=== PATIENT | female | born 1970 | race Caucasian/White ===

== ENCOUNTER 2017-02-15 13:18 | Emergency (ER) | payer BC ==
[2017-02-15] MEDS ORDERED: Sodium Chloride 0.9% 1000 ML 1,000 ML IV STA (13:54)
[2017-02-15] MEDS ORDERED: MORPHINE SULFATE 4 MG INJ IV ONE ×2 (13:54→15:24)
[2017-02-15 14:03] LABS: BASOPHIL % 0.3 % (0.0-0.4); Eosinophil % 2.1 % (0.00-5.0); Granulocytes % 67.7 % (36.0-66.0); Lymphocytes % 22.5 % (24.0-44.0); Mean Cell Volume 87.1 fl (78-100); Mean Corpuscular Hemoglobin 28.9 pg (26-32); Mean Platelet Volume 10.3 fl (6-9.5); Monocytes % 7.4 % (0.0-12.0); Platelet Count 274 K/mm3 (150-450); Red Blood Count 4.88 M/mm3 (4.1-5.4); Red Cell Distribution Width 13.2 % (11.5-14.0); White Blood Count 9.4 K/mm3 (4.0-10.5)
[2017-02-15 14:04] LABS: Collection Type CLEAN CATCH
[2017-02-15 14:05] LABS: Bilirubin NEGATIVE (NEGATIVE); Blood 50 Ery/ul (0-5); COMPLETE URINE MICROSCOPIC? YES; Glucose 250 mg/dL (NEGATIVE); Leukocyte Esterase 2+ (NEGATIVE)
[2017-02-15] MEDS ORDERED: Sodium Chloride 0.9% 1000 ML 1,000 ML ONE (14:05)
[2017-02-15] MEDS ORDERED: MORPHINE SULFATE 4 MG INJ ONE ×2 (14:05→15:29)
[2017-02-15 14:18] LABS: ADD URINE CULTURE? YES (NO); Bacteria MODERATE /HPF (NEGATIVE); Epithelial Cells MODERATE /HPF (FEW); Mucus SLIGHT /HPF (NEGATIVE); WBC 15-25 /HPF (0-5)
[2017-02-15 14:19] LABS: ALBUMIN 3.7 g/dL (3.4-5.0); ALKALINE PHOSPHATASE 101 U/L (46-116); ANION GAP 16.4 MEQ/L (5-15); BLOOD UREA NITROGEN 13 mg/dL (9-20); CHLORIDE 104 mEq/L (98-107); Carbon Dioxide 21.9 mEq/L (21-32); Glucose 230 MG/DL (70-110); LIPASE 71 U/L (73-393); Potassium 4.3 mEq/L (3.5-5.1); SGOT/AST 31 U/L (15-37); SGPT/ALT 32 U/L (12-78); SODIUM 138 mEq/L (136-145); Total Protein 7.2 gm/dL (6.4-8.2)
[2017-02-15] MEDS ORDERED: Zofran 4 MG/2 ML VIAL ONE (14:31)
[2017-02-15] MEDS ORDERED: Zofran 4 MG/2 ML VIAL IV ONE (14:32)
--- NOTE | 2017-02-15 14:51 | ERPHSYRPT ---
- History of Present Illness Time Seen by Provider: 02/15/17 14:51 Historian: patient, family Exam Limitations: no limitations Patient Subjective Stated Complaint: abdominhal pain for week and a half, getting worse and then 2 or 3 days ago noticed a knot on the side Triage Nursing Assessment: pt alert and oriented x3, abdominal pain and tenderness radiating to back and around rib cage, small knot under skin surface on palpation, bowel sounds x4, skin warm dry and intact, balance intact gait is steady and patient can ambualte by self. Physician History: abdominal pain for week and a half, getting worse and then 2 or 3 days ago noticed a knot on the side Timing/Duration: day(s) (2-3 days) Allergies/Adverse Reactions: metoclopramide HCl [From Reglan] Allergy (Mild, Verified 05/26/15 18:50) "CREEPY CRAWLYS" erythromycin base [Erythromycin Base] Adverse Reaction (Mild, Verified 05/26/15 18:50) Vomiting hydromorphone HCl [From Dilaudid] Adverse Reaction (Mild, Verified 05/26/15 18: 50) Vomiting Home Medications: Buspirone HCl [Buspar] 10 mg PO HS 01/25/14 [History] Duloxetine HCl [Cymbalta] 60 mg PO DAILY 01/25/14 [History] Insulin Glargine [Lantus Insulin] 48 unit SQ HS 01/25/14 [History] Insulin Lispro [Humalog] 10 unit SQ AC 01/25/14 [History] Lovastatin 40 mg PO HS 01/25/14 [History] Omeprazole Magnesium [Prilosec Otc] 20 mg PO BID 01/25/14 [History] Promethazine HCl 25 mg [Phenergan 25 mg] 25 mg PO Q12H PRN 01/25/14 [ History] Tizanidine HCl 4 mg [Zanaflex 4 MG] 6 mg PO HS 01/25/14 [History] Baclofen 10 mg [Lioresal 10 mg] 10 mg PO TID 01/02/15 [History] Fenofibrate 54 mg PO DAILY 01/02/15 [History] Fluticasone/Salmeterol [Advair 100-50 Diskus] 1 puff IH BID 05/26/15 [History] Hydrocodone Bit/Acetaminophen [Hydrocodon-Acetaminoph 7.5-325] 1 tab PO BID [History] Hx Tetanus, Diphtheria Vaccination/Date Given: Yes Hx Influenza Vaccination/Date Given: No Hx Pneumococcal Vaccination/Date Given: No Immunizations Up to Date: Yes - Past Medical History Pertinent Past Medical History: Yes Neurological History: No Pertinent History ENT History: No Pertinent History Cardiac History: High Cholesterol Respiratory History: Asthma Endocrine Medical History: Diabetes Type I Musculoskeletal History: Arthritis, Fibromyalgia GI Medical History: Colitis, GERD, Gallbladder Disease History: No Pertinent History Psycho-Social History: Anxiety, Depression Female Reproductive Disorders: Abnormal Uterine Bleeding, Menstrual Problems Other Medical History: Celiac disease and unknown connective tissue disease. - Past Surgical History Past Surgical History: Yes Neuro Surgical History: No Pertinent History Cardiac: No Pertinent History Respiratory: No Pertinent History Gastrointestinal: Appendectomy, Cholecystectomy, Hernia Repair Musculoskeletal: No Pertinent History Female Surgical History: Section, Hysterectomy Other Surgical History: Cholecystectomy, appendectomy - Social History Smoking Status: Never smoker Exposure to second hand smoke: No Drug Use: none Patient Lives Alone: No - Nursing Vital Signs Nursing Vital Signs: Initial Vital Signs Temperature 98.1 F 02/15/17 13:19 Pulse Rate 98 H 02/15/17 13:19 Respiratory Rate 20 02/15/17 13:19 Blood Pressure 131/82 02/15/17 13:19 O2 Sat by Pulse Oximetry 98 02/15/17 13:19 Pain Scale Pain Intensity 8 - Physical Exam SpO2: 97 Oxygen Delivery: Room Air - CT Exams Abdomen/Pelvis CT Interpretation: Tele-radiologist Report (no acute obstructive changes, ) Ordered Tests: Active Orders 24 hr Category Date Time Status Clean Catch Urine Specimen STAT Care 02/15/17 13:50 Active IV Insertion STAT Care 02/15/17 13:50 Active ABDOMEN AND PELVIS W/0 CONTRAS [CT] Stat Exams 02/15/17 13:55 Taken AMYLASE Stat Lab 02/15/17 14:06 Completed CBC W DIFF Stat Lab 02/15/17 14:06 Completed CMP Stat Lab 02/15/17 14:06 Completed CULTURE,URINE Stat Lab 02/15/17 13:54 Received LIPASE Stat Lab 02/15/17 14:06 Completed Lactic Acid Stat Lab 02/15/17 13:54 Completed UA W/ MICROSCOPIC Stat Lab 02/15/17 13:54 Completed Urine Triage Profile Stat Lab 02/15/17 14:06 Completed Medication Summary Generic Name Dose Route Start Last Admin Trade Name Joselito PRN Reason Stop Dose Admin Ceftriaxone Sodium/Dextrose 1 g in 50 mls @ 100 mls/hr 02/15/17 15:09 15:19 Rocephin 1 Gm-D5w 50 Ml Bag IV 02/15/17 15:38 100 mls/hr STAT STA Administration Discontinued Medications Generic Name Dose Route Start Last Admin Trade Name Freq PRN Reason Stop Dose Admin Sodium Chloride 1,000 mls @ 999 mls/hr 02/15/17 13:54 02/15/17 14:25 Sodium Chloride 0.9% 1000 Ml IV 02/15/17 14:54 999 mls/hr .Q1H1M STA Administration Sodium Chloride Confirm 02/15/17 14:05 Sodium Chloride 0.9% 1000 Ml Administered 02/15/17 14:06 Dose 1,000 mls @ ud .ROUTE .STK-MED ONE Ceftriaxone Sodium/Dextrose Confirm 02/15/17 15:16 Rocephin 1 Gm-D5w 50 Ml Bag Administered 02/15/17 15:17 Dose 1 g in 50 mls @ ud IV .STK-MED ONE Morphine Sulfate 4 mg 02/15/17 13:54 02/15/17 14:24 Morphine Sulfate 4 Mg Inj IV 02/15/17 13:55 4 mg STAT ONE Administration Morphine Sulfate Confirm 02/15/17 14:05 Morphine Sulfate 4 Mg Inj Administered 02/15/17 14:06 Dose 4 mg .ROUTE .STK-MED ONE Ondansetron HCl 4 mg 02/15/17 14:32 02/15/17 14:33 Zofran 4 Mg/2 Ml Vial IV 02/15/17 14:33 4 mg STAT ONE Administration Ondansetron HCl Confirm 02/15/17 14:31 Zofran 4 Mg/2 Ml Vial Administered 02/15/17 14:32 Dose 4 mg .ROUTE .STK-MED ONE Lab/Rad Data: Laboratory Result Diagrams 02/15/17 14:06 02/15/17 14:06 Laboratory Results 02/15/17 02/15/17 02/15/17 Range/Units 14:06 14:06 14:06 WBC 9.4 (4.0-10.5) K/mm3 RBC 4.88 (4.1-5.4) M/mm3 Hgb 14.1 (12.0-16.0) gm/dl Hct 42.5 (35-47) % MCV 87.1 (78-100) fl MCH 28.9 (26-32) pg MCHC 33.2 (32-36) g/dl RDW 13.2 (11.5-14.0) % Plt Count 274 (150-450) K/mm3 MPV 10.3 H (6-9.5) fl Gran % 67.7 H (36.0-66.0) % Lymphocytes % 22.5 L (24.0-44.0) % Monocytes % 7.4 (0.0-12.0) % Eosinophils % 2.1 (0.00-5.0) % Basophils % 0.3 (0.0-0.4) % Basophils # 0.03 (0-0.4) Sodium 138 (136-145) mEq/L Potassium 4.3 (3.5-5.1) mEq/L Chloride 104 (98-107) mEq/L Carbon Dioxide 21.9 (21-32) mEq/L Anion Gap 16.4 H (5-15) MEQ/L BUN 13 (9-20) mg/dL Creatinine 0.78 (0.55-1.30) mg/dl Estimated GFR > 60 ML/MIN Glucose 230 H (70-110) MG/DL Lactic Acid (0.4-2.0) Calcium 8.8 (8.5-10.1) mg/dL Total Bilirubin 0.30 (0.2-1.0) mg/dL AST 31 (15-37) U/L ALT 32 (12-78) U/L Alkaline Phosphatase 101 (46-116) U/L Serum Total Protein 7.2 (6.4-8.2) gm/dL Albumin 3.7 (3.4-5.0) g/dL Amylase 37 (25-115) U/L Lipase 71 L (73-393) U/L Ur Collection Type Urine Color (YELLOW) Urine Appearance (CLEAR) Urine pH (5-6) Ur Specific [place] (1.005-1.025) Urine Protein (Negative) Urine Ketones (NEGATIVE) Urine Blood (0-5) Nura/ul Urine Nitrite (NEGATIVE) Urine Bilirubin (NEGATIVE) Urine Urobilinogen (0-1) mg/dL Ur Leukocyte Esterase (NEGATIVE) Urine Microscopic RBC (0-2) /HPF Urine Microscopic WBC (0-5) /HPF Ur Epithelial Cells (FEW) /HPF Urine Bacteria (NEGATIVE) /HPF Urine Mucus (NEGATIVE) /HPF Urine Culture Reflexed (NO) Urine Glucose (NEGATIVE) mg/dL Urine Opiates Level POS. (NEGATIVE) Ur Methadone NEG. (NEGATIVE) Urine Barbiturates NEG. (NEGATIVE) Ur Phencyclidine (PCP) NEG. (NEGATIVE) Urine Amphetamine NEG. (NEGATIVE) U Benzodiazepine Level NEG. (NEGATIVE) Urine Cocaine NEG. (NEGATIVE) Urine Marijuana (THC) NEG. (NEGATIVE) Specimen Received 02/15/17 02/15/17 Range/Units 13:54 13:54 WBC (4.0-10.5) K/mm3 RBC (4.1-5.4) M/mm3 Hgb (12.0-16.0) gm/dl Hct (35-47) % MCV (78-100) fl MCH (26-32) pg MCHC (32-36) g/dl RDW (11.5-14.0) % Plt Count (150-450) K/mm3 MPV (6-9.5) fl Gran % (36.0-66.0) % Lymphocytes % (24.0-44.0) % Monocytes % (0.0-12.0) % Eosinophils % (0.00-5.0) % Basophils % (0.0-0.4) % Basophils # (0-0.4) Sodium (136-145) mEq/L Potassium (3.5-5.1) mEq/L Chloride (98-107) mEq/L Carbon Dioxide (21-32) mEq/L Anion Gap (5-15) MEQ/L BUN (9-20) mg/dL Creatinine (0.55-1.30) mg/dl Estimated GFR ML/MIN Glucose (70-110) MG/DL Lactic Acid 0.7 (0.4-2.0) Calcium (8.5-10.1) mg/dL Total Bilirubin (0.2-1.0) mg/dL AST (15-37) U/L ALT (12-78) U/L Alkaline Phosphatase (46-116) U/L Serum Total Protein (6.4-8.2) gm/dL Albumin (3.4-5.0) g/dL Amylase (25-115) U/L Lipase (73-393) U/L Ur Collection Type CLEAN CATCH Urine Color YELLOW (YELLOW) Urine Appearance CLOUDY (CLEAR) Urine pH 5.0 (5-6) Ur Specific [place] 1.010 (1.005-1.025) Urine Protein TRACE (Negative) Urine Ketones NEGATIVE (NEGATIVE) Urine Blood 50 (0-5) Nura/ul Urine Nitrite NEGATIVE (NEGATIVE) Urine Bilirubin NEGATIVE (NEGATIVE) Urine Urobilinogen NORMAL (0-1) mg/dL Ur Leukocyte Esterase 2+ (NEGATIVE) Urine Microscopic RBC 5-10 (0-2) /HPF Urine Microscopic WBC 15-25 (0-5) /HPF Ur Epithelial Cells MODERATE (FEW) /HPF Urine Bacteria MODERATE (NEGATIVE) /HPF Urine Mucus SLIGHT (NEGATIVE) /HPF Urine Culture Reflexed YES (NO) Urine Glucose 250 (NEGATIVE) mg/dL Urine Opiates Level (NEGATIVE) Ur Methadone (NEGATIVE) Urine Barbiturates (NEGATIVE) Ur Phencyclidine (PCP) (NEGATIVE) Urine Amphetamine (NEGATIVE) U Benzodiazepine Level (NEGATIVE) Urine Cocaine (NEGATIVE) Urine Marijuana (THC) (NEGATIVE) Specimen Received 02-15 - Progress Progress: improved, pain not gone completely Counseled pt/family regarding: lab results, diagnosis, need for follow-up, rad results - Departure Time of Disposition: 15:24 Departure Disposition: Home Clinical Impression: IDDM (insulin dependent diabetes mellitus) Abdominal pain Qualifiers: Abdominal location: left upper quadrant Qualified Code(s): R10.12 - Left upper quadrant pain UTI (urinary tract infection) Qualifiers: Urinary tract infection type: acute pyelonephritis Qualified Code(s): N10 - Acute pyelonephritis Condition: Stable Critical Care Time: Yes Critical Care Time(excluding separately billable procedures): 30-74 minutes Referrals: MARTA CHUN NP [Primary Care Provider] - Instructions: Abdominal Pain-Adult, Urinary Tract Infection (UTI) Additional Instructions: ABDOMINAL PAIN 1. There are several different causes for abdominal pain, some of which may not be able to be identified on initial examination. 2. The important thing to remember is that bodily functions can change in a short period of time. If you notice any of the following symptoms, return to the emergency department or consult your doctor immediately: A. Worsening pain or no improvement in the next 12 hours. B. Increasing, severe abdominal pain C. Blood in stool D. Black stools E. Persistent vomiting F. Fever or chills or other symptoms URINARY TRACT INFECTION 1. You will need to drink plenty of fluids in order to keep your urinary system flushed. These fluids should mainly consist of water and juices. 2. Take medications as directed. You need to completely finish any antiobiotic prescription given. 3. Try to avoid coffee, tea, alcohol, and seasoned foods as they may cause bladder irritation. 4. If signs and symptoms persist after 3-4 days, you will need to follow up with your family physician. 5. Female Patients: A. Avoid intercourse for 3-4 days. B. Empty bladder before and after intercourse to reduce risk of re- infection. C. After emptying bladder, wipe from front to back to reduce the risk of re- infection. Please follow the instructions given to you. Please take your medication as prescribed if given. If symptoms recur or get worse, come back to the emergency room if you cannot reach your primary care physician, or call your primary care physician for an appointment. Again if your symptoms get worse, come back to the emergency room. Thanks for visiting emergency room, and let us take care of you. Prescriptions: Smz/Tmp Ds Tablet [Bactrim Ds Tablet] 1 udtab PO BID #20 tablet Dicyclomine HCl 20 mg [Bentyl 20 mg] 20 mg PO TID #15 tablet
[2017-02-15] MEDS ORDERED: ROCEPHIN 1 Gm-D5w 50 ml Bag** 1 G/50 ML IVPB IV STA (15:09)
[2017-02-15] MEDS ORDERED: ROCEPHIN 1 Gm-D5w 50 ml Bag** 1 G/50 ML IVPB IV ONE (15:16)
[2017-02-15 15:24] VITALS: BP 120/81; PULSE 84
[2017-02-15 15:25] VITALS: O2SAT 97
--- NOTE | 2017-02-15 21:50 | XRAY ---
Indication: Left flank and epigastric pain. Multiple contiguous axial images obtained through the abdomen and pelvis without contrast as ordered. Comparison: May 26, 2015. Lung bases clear. Heart is not enlarged. Noncontrasted stomach and bowel loops appear nonobstructed. There remains diffuse scattered colonic fecal debris with now undigested pills. Again previous reported hysterectomy, cholecystectomy, and appendectomy. No free fluid/air. Stable small fatty supraumbilical ventral hernia. Remaining liver, pancreas, spleen, adrenal glands, kidneys, ureters, bladder, and aorta appear unremarkable for noncontrast exam. Osseous structures intact. Impression: 1. Stable fatty ventral hernia and fecal stasis without obstruction. 2. No new/acute intra-abdominal/pelvic abnormalities on this noncontrast exam. Comment: Preliminary interpretation was made by [facility]. No discrepancy. CTDI 22.87
== END 2017-02-15 15:53 | disposition home or self-care (01) ==
LOC: ED 13:18
DX: N10 Acute pyelonephritis (principal); R10.12 Left upper quadrant pain; E11.9 Type 2 diabetes mellitus without complications; Z79.4 Long term (current) use of insulin; Z79.899 Other long term (current) drug therapy
CPT/HCPCS: 36000; 36415; 74176; 80053; 80307; 81000; 82150; 83605; 83690; 85025; 87086; 96360; 96365; 96374; 96375; 99285; J0696; J2270; J2405

== ENCOUNTER 2017-12-29 08:13 | Emergency (ER) | payer BC ==
[2017-12-29] MEDS ORDERED: Zofran 4 MG/2 ML VIAL IV ONE (09:20)
[2017-12-29] MEDS ORDERED: Sodium Chloride 0.9% 1000 ML 1,000 ML IV STA (09:20)
[2017-12-29] MEDS ORDERED: PROTONIX 40 MG IV IV ONE ×2 (09:23→09:32)
[2017-12-29] MEDS ORDERED: Zofran 4 MG/2 ML VIAL ONE (09:31)
--- NOTE | 2017-12-29 09:31 | ERPHSYRPT ---
- History of Present Illness Time Seen by Provider: 12/29/17 08:30 Historian: patient Exam Limitations: clinical condition Patient Subjective Stated Complaint: abd pain started last night, last BM yesterday- normal. states pain is sharp and constant with nausea. Triage Nursing Assessment: pt holding abd, skin pale, warm and dry. Physician History: PATIENT WITH HISTORY OF TYPE 2 DIABETES, ASTHMA, OSTEOARTHRITIS, COMPLAINS OF EPIGASTRIC AND UPPER LEFT ABDOMINAL PAIN, SHARP IN CHARACTER. PATIENT COMPLAINS OF PERSISTENT NAUSEA, DENIES EMESIS, FEVER, URINARY SYMPTOMS, FREQUENCY, URGENCY, DYSURIA, HEMATURIA. Timing/Duration: yesterday Activities at Onset: none Quality: sharpness Abdominal Pain Onset Location: LUQ, epigastric Pain Radiation: no radiation Severity of Pain-Max: moderate Severity of Pain-Current: moderate Associated Symptoms: nausea Previous symptoms: no prior history Allergies/Adverse Reactions: metoclopramide HCl [From Reglan] Allergy (Mild, Verified 05/26/15 18:50) "CREEPY CRAWLYS" erythromycin base [Erythromycin Base] Adverse Reaction (Mild, Verified 05/26/15 18:50) Vomiting hydromorphone HCl [From Dilaudid] Adverse Reaction (Mild, Verified 05/26/15 18: 50) Vomiting Home Medications: Buspirone HCl [Buspar] 10 mg PO HS 01/25/14 [History] Duloxetine HCl [Cymbalta] 120 mg PO HS 01/25/14 [History] Insulin Glargine [Lantus Insulin] 48 unit SQ HS 01/25/14 [History] Insulin Lispro [Humalog] 12 unit SQ AC 01/25/14 [History] Lovastatin 40 mg PO HS 01/25/14 [History] Tizanidine HCl 4 mg [Zanaflex 4 MG] 6 mg PO HS 01/25/14 [History] Baclofen 10 mg [Lioresal 10 mg] 10 mg PO TID 01/02/15 [History] Fenofibrate 145 mg PO DAILY 01/02/15 [History] Fluticasone/Salmeterol [Advair 100-50 Diskus] 1 puff IH BID 05/26/15 [History] Hydrocodone Bit/Acetaminophen [Hydrocodon-Acetaminoph 7.5-325] 1 tab PO BID [History] Carbidopa/Levodopa [Sinemet 25-100 mg Tablet] 1 each PO DAILY 12/29/17 [History] Topiramate 25 mg [Topamax 25 MG] 50 mg PO HS 12/29/17 [History] Hx Tetanus, Diphtheria Vaccination/Date Given: Yes Hx Influenza Vaccination/Date Given: Yes Hx Pneumococcal Vaccination/Date Given: No Immunizations Up to Date: Yes - Review of Systems Constitutional: No Symptoms Eyes: No Symptoms Ears, Nose, & Throat: No Symptoms Respiratory: No Cough, No Dyspnea Cardiac: No Chest Pain, No Edema, No Syncope Abdominal/Gastrointestinal: Abdominal Pain, Nausea Genitourinary Symptoms: No Dysuria Musculoskeletal: No Back Pain, No Neck Pain - Past Medical History Pertinent Past Medical History: Yes Neurological History: No Pertinent History ENT History: No Pertinent History Cardiac History: High Cholesterol Respiratory History: Asthma Endocrine Medical History: Diabetes Type I Musculoskeletal History: Arthritis, Fibromyalgia GI Medical History: Colitis, GERD, Gallbladder Disease History: No Pertinent History Psycho-Social History: Anxiety, Depression Female Reproductive Disorders: Abnormal Uterine Bleeding, Menstrual Problems Other Medical History: Celiac disease and unknown connective tissue disease. - Past Surgical History Past Surgical History: Yes Neuro Surgical History: No Pertinent History Cardiac: No Pertinent History Respiratory: No Pertinent History Gastrointestinal: Appendectomy, Cholecystectomy, Hernia Repair Musculoskeletal: No Pertinent History Female Surgical History: Section, Hysterectomy Other Surgical History: Cholecystectomy, appendectomy - Social History Smoking Status: Never smoker Exposure to second hand smoke: No Drug Use: none Patient Lives Alone: No - Female History Hx Last Menstrual Period: 2012 Hx Now: No - Nursing Vital Signs Nursing Vital Signs: Initial Vital Signs Temperature 98.3 F 12/29/17 08:13 Pulse Rate 93 H 12/29/17 08:13 Respiratory Rate 16 12/29/17 08:13 Blood Pressure 102/72 12/29/17 08:13 O2 Sat by Pulse Oximetry 99 12/29/17 08:13 Pain Scale Pain Intensity 4 - Physical Exam General Appearance: no apparent distress, alert Eye Exam: PERRL/EOMI, eyes nml inspection Ears, Nose, Throat Exam: normal ENT inspection, pharynx normal, moist mucous membranes Neck Exam: normal inspection, non-tender, supple, full range of motion Respiratory Exam: normal breath sounds, lungs clear, No respiratory distress Cardiovascular Exam: regular rate/rhythm, normal heart sounds Gastrointestinal/Abdomen Exam: soft, normal bowel sounds, No tenderness (THERE IS EPIGASTRIC AND LEFT LATERAL TENDERNESS, NO GUARDING OR REBOUND TENDERNESS), No mass Back Exam: normal inspection, normal range of motion, CVA tenderness (THERE IS MODERATE LEFT CVA TENDERNESS), No vertebral tenderness Extremity Exam: normal inspection, normal range of motion, pelvis stable Neurologic Exam: alert, oriented x 3, cooperative, normal mood/affect, nml cerebellar function, sensation nml, No motor deficits Skin Exam: normal color, warm, dry SpO2 Interpretation: normal SpO2: 99 Oxygen Delivery: Room Air - CT Exams Abdomen/Pelvis CT Interpretation: Discussed w/radiologist (NO NEW /ACUTE INTRA-ABDOMINAL / PELVIC ANORMALITIES) Ordered Tests: Active Orders 24 hr Category Date Time Status Clean Catch Urine Specimen STAT Care 12/29/17 09:20 Active IV Insertion STAT Care 12/29/17 09:20 Active ABDOMEN AND PELVIS W/0 CONTRAS [CT] Stat Exams 12/29/17 09:21 Completed AMYLASE Stat Lab 12/29/17 10:02 Completed BMP Stat Lab 12/29/17 10:02 Completed CBC W DIFF Stat Lab 12/29/17 10:02 Completed LIPASE Stat Lab 12/29/17 10:02 Completed UA W/RFX UR CULTURE Stat Lab 12/29/17 11:45 Completed Medication Summary Discontinued Medications Generic Name Dose Route Start Last Admin Trade Name Freq PRN Reason Stop Dose Admin Sodium Chloride 1,000 mls @ 500 mls/hr 12/29/17 09:20 12/29/17 10:06 Sodium Chloride 0.9% 1000 Ml IV 12/29/17 11:19 500 mls/hr .Q2H STA Administration Sodium Chloride Confirm 12/29/17 09:32 Sodium Chloride 0.9% 1000 Ml Administered 12/29/17 09:33 Dose 1,000 mls @ ud .ROUTE .STK-MED ONE Morphine Sulfate 8 mg 12/29/17 09:35 12/29/17 10:19 Morphine Sulfate 10 Mg/Ml IV 12/29/17 09:36 8 mg STAT ONE Administration Morphine Sulfate Confirm 12/29/17 10:16 Morphine Sulfate 10 Mg/Ml Administered 12/29/17 10:17 Dose 10 mg .ROUTE .STK-MED ONE Ondansetron HCl 4 mg 12/29/17 09:20 12/29/17 10:06 Zofran 4 Mg/2 Ml Vial IV 12/29/17 09:21 4 mg STAT ONE Administration Ondansetron HCl Confirm 12/29/17 09:31 Zofran 4 Mg/2 Ml Vial Administered 12/29/17 09:32 Dose 4 mg .ROUTE .STK-MED ONE Pantoprazole Sodium 40 mg 12/29/17 09:23 12/29/17 10:06 Protonix 40 Mg Iv IV 12/29/17 09:24 40 mg STAT ONE Administration Pantoprazole Sodium Confirm 12/29/17 09:32 Protonix 40 Mg Iv Administered 12/29/17 09:33 Dose 40 mg IV .STK-MED ONE Lab/Rad Data: Laboratory Result Diagrams 12/29/17 10:02 12/29/17 10:02 Laboratory Results 12/29/17 12/29/17 12/29/17 Range/Units 11:45 10:02 10:02 WBC 10.1 (4.0-10.5) K/mm3 RBC 4.57 (4.1-5.4) M/mm3 Hgb 13.7 (12.0-16.0) gm/dl Hct 40.9 (35-47) % MCV 89.5 (78-100) fl MCH 30.0 (26-32) pg MCHC 33.5 (32-36) g/dl RDW 13.1 (11.5-14.0) % Plt Count 306 (150-450) K/mm3 MPV 10.4 H (6-9.5) fl Gran % 74.8 H (36.0-66.0) % Eos # (Auto) 0.11 (0-0.5) Absolute Lymphs (auto) 1.72 (1.0-4.6) Absolute Monos (auto) 0.71 (0.0-1.3) Lymphocytes % 17.0 L (24.0-44.0) % Monocytes % 7.0 (0.0-12.0) % Eosinophils % 1.1 (0.00-5.0) % Basophils % 0.1 (0.0-0.4) % Absolute Granulocytes 7.56 H (1.4-6.9) Basophils # 0.01 (0-0.4) Sodium 138 (137-145) mmol/L Potassium 4.0 (3.5-5.1) mmol/L Chloride 104 (98-107) mmol/L Carbon Dioxide 23 (22-30) mmol/L Anion Gap 15.9 H (5-15) MEQ/L BUN 19 H (7-17) mg/dL Creatinine 0.89 (0.52-1.04) mg/dL Estimated GFR > 60.0 ML/MIN Glucose 260 H (74-106) mg/dL Calcium 9.1 (8.4-10.2) mg/dL Amylase 51 (30-110) U/L Lipase 30 (23-300) U/L Ur Collection Type CLEAN CATCH Urine Color YELLOW (YELLOW) Urine Appearance CLEAR (CLEAR) Urine pH 5.0 (5-6) Ur Specific [place] 1.020 (1.005-1.025) Urine Protein NEGATIVE (Negative) Urine Ketones NEGATIVE (NEGATIVE) Urine Blood NEGATIVE (0-5) Nura/ul Urine Nitrite NEGATIVE (NEGATIVE) Urine Bilirubin NEGATIVE (NEGATIVE) Urine Urobilinogen NORMAL (0-1) mg/dL Ur Leukocyte Esterase NEGATIVE (NEGATIVE) Urine Culture Reflexed NO (NO) Urine Glucose 1000 (NEGATIVE) mg/dL - Progress Progress: improved Progress Note: 12/29/17 09:32 ADMINISTERED IV NORMAL SALINE 500ML/HR X 2, ZOFRAN 4MG, PROTONIX 40MG, MORPHINE SULFATE 8MG IV 12/29/17 10:26 Counseled pt/family regarding: lab results, diagnosis, need for follow-up, rad results - Departure Time of Disposition: 12:35 Departure Disposition: Home Clinical Impression: ACUTE ABDOMINAL PAIN Condition: Stable Critical Care Time: No Referrals: MARTA CHUN NP [Primary Care Provider] - Additional Instructions: BEGIN PROTONIX 40MG DAILY FOR 4 WEEKS AND DISCONTINUE PRILOSEC. MAY TAKE EITHER 2 TABLESPOONS OF MAALOX OR MYLANTA AFTER MEALS AND AT BEDTIME FOR REFLUX SYMPTOMS. PERCOGESIC 1 TABLET EVERY 4 HOURS FOR PAIN NEEDED. CONSULT YOUR PRIMARY CARE PROVIDER FOR FOLLOWUP AND REVIEW OF EMERGENCY ROOM VISIT. RETURN TO EMERGENCY ROOM FOR INCREASING ABDOMINAL PAIN OR ONSET OF VOMITING. Prescriptions: PANTOPRAZOLE 40 mg Tablet [Protonix 40MG Tablet] 40 mg PO DAILY #30 tab
[2017-12-29] MEDS ORDERED: Sodium Chloride 0.9% 1000 ML 1,000 ML ONE (09:32)
[2017-12-29] MEDS ORDERED: MORPHINE SULFATE 10 MG/ML IV ONE (09:35)
[2017-12-29 10:06] LABS: BASOPHIL % 0.1 % (0.0-0.4); Basophil (Absolute #) 0.01 (0-0.4); Eosinophil % 1.1 % (0.00-5.0); Eosinophil (Absolute #) 0.11 (0-0.5); Granulocyte Absolute (ANC) 7.56 (1.4-6.9); Granulocytes % 74.8 % (36.0-66.0); Hematocrit 40.9 % (35-47); Hemoglobin 13.7 gm/dl (12.0-16.0); Lymphocyte (Absolute #) 1.72 (1.0-4.6); Mean Cell Volume 89.5 fl (78-100); Mean Corpuscular Hgb Concent. 33.5 g/dl (32-36); Mean Platelet Volume 10.4 fl (6-9.5); Monocyte (Absolute #) 0.71 (0.0-1.3); Platelet Count 306 K/mm3 (150-450); Red Blood Count 4.57 M/mm3 (4.1-5.4); Red Cell Distribution Width 13.1 % (11.5-14.0); White Blood Count 10.1 K/mm3 (4.0-10.5)
[2017-12-29] MEDS ORDERED: MORPHINE SULFATE 10 MG/ML ONE (10:16)
--- NOTE | 2017-12-29 10:20 | XRAY ---
Indication: Left sided pain 2-3 days. Multiple contiguous axial images obtained through the abdomen and pelvis without contrast as ordered. Comparison: February 15, 2017. Lung bases remain clear. Heart is not enlarged. Noncontrasted stomach and bowel loops appear nonobstructed. There remains diffuse scattered colonic fecal debris throughout. A few undigested pills seen throughout the colon. Again previous reported hysterectomy, cholecystectomy, and appendectomy. No free fluid/air. Stable small fatty supraumbilical ventral hernia. Remaining liver, pancreas, spleen, adrenal glands, kidneys, ureters, bladder, and aorta appear unremarkable for noncontrast exam. Osseous structures intact. Impression: 1. Again fecal stasis without obstruction. 2. Stable fatty ventral hernia. 3. No new/acute intra-abdominal/pelvic abnormalities on this noncontrast exam. CTDI 23.13
[2017-12-29 10:29] LABS: AMYLASE 51 U/L (30-110); ANION GAP 15.9 MEQ/L (5-15); BLOOD UREA NITROGEN 19 mg/dL (7-17); CHLORIDE 104 mmol/L (98-107); Calcium 9.1 mg/dL (8.4-10.2); Carbon Dioxide 23 mmol/L (22-30); Creatinine 1 0.89 mg/dL (0.52-1.04); Glucose 260 mg/dL (74-106); LIPASE 30 U/L (23-300); SODIUM 138 mmol/L (137-145)
[2017-12-29 12:06] LABS: Appearance CLEAR (CLEAR); Bilirubin NEGATIVE (NEGATIVE); Blood NEGATIVE Ery/ul (0-5); Glucose 1000 mg/dL (NEGATIVE); Ketones NEGATIVE (NEGATIVE); Leukocyte Esterase NEGATIVE (NEGATIVE); Nitrite NEGATIVE (NEGATIVE); Protein,Urine Dip NEGATIVE (Negative); Urobilinogen NORMAL mg/dL (0-1)
[2017-12-29 12:54] VITALS: BP 101/52; PULSE 88; O2SAT 95
== END 2017-12-29 13:04 | disposition home or self-care (01) ==
LOC: ED 08:13
DX: R10.12 Left upper quadrant pain (principal); R10.13 Epigastric pain; R11.0 Nausea; Z79.899 Other long term (current) drug therapy; E10.9 Type 1 diabetes mellitus without complications; Z79.4 Long term (current) use of insulin
CPT/HCPCS: 36000; 36415; 74176; 80048; 81003; 82150; 83690; 85025; 96360; 96361; 96374; 96375; 99284; J2270; J2405

== ENCOUNTER 2018-12-10 16:46 | Emergency (ER) | payer BC ==
[2018-12-10 17:03] VITALS: BP 110/72; PULSE 93; O2SAT 98
--- NOTE | 2018-12-10 17:06 | ERPHSYRPT ---
- History of Present Illness Time Seen by Provider: 12/10/18 16:55 Source: patient Exam Limitations: no limitations Physician History: Pain skin lesion on the inferior lateral left knee over the past day. She has diabetes and dealt with two smaller ones on the lower left anterior leg for the past week, but they improved after self-draining. Timing/Duration: day(s) (1) Quality: painful Severity: moderate Location: other (left knee and left lower leg) Possible Causes: no cause identified Modifying Factors: Improves With: other (nothing tried) Associated Symptoms: blisters, swelling/mass/lumps, other (single swelling at the skin of the left outside knee), No change in skin texture, No difficulty breathing, No edema, No fever, No flushing, No headache, No hives, No jaundice, No malaise, No nasal congestion, No numbness, No pallor, No paresthesia, No petechiae, No rash, No sore throat, No tingling Allergies/Adverse Reactions: metoclopramide HCl [From Reglan] Allergy (Mild, Verified 12/10/18 17:03) "CREEPY CRAWLYS" erythromycin base [Erythromycin Base] Adverse Reaction (Mild, Verified 12/10/18 17:03) Vomiting hydromorphone HCl [From Dilaudid] Adverse Reaction (Mild, Verified 12/10/18 17: 03) Vomiting Home Medications: Buspirone HCl [Buspar] 10 mg PO HS 01/25/14 [History] Duloxetine HCl [Cymbalta] 120 mg PO HS 01/25/14 [History] Insulin Glargine [Lantus Insulin] 48 unit SQ HS 01/25/14 [History] Insulin Lispro [Humalog] 12 unit SQ AC 01/25/14 [History] Lovastatin 40 mg PO HS 01/25/14 [History] Tizanidine HCl 4 mg [Zanaflex 4 MG] 6 mg PO HS 01/25/14 [History] Baclofen 10 mg [Lioresal 10 mg] 10 mg PO TID 01/02/15 [History] Fenofibrate 145 mg PO DAILY 01/02/15 [History] Fluticasone/Salmeterol [Advair 100-50 Diskus] 1 puff IH BID 05/26/15 [History] Hydrocodone Bit/Acetaminophen [Hydrocodon-Acetaminoph 7.5-325] 1 tab PO BID [History] Carbidopa/Levodopa [Sinemet 25-100 mg Tablet] 1 each PO DAILY 12/29/17 [History] Topiramate 25 mg [Topamax 25 MG] 50 mg PO HS 12/29/17 [History] Hx Tetanus, Diphtheria Vaccination/Date Given: Yes Hx Influenza Vaccination/Date Given: Yes Hx Pneumococcal Vaccination/Date Given: No - Review of Systems Constitutional: No Fever, No Chills Eyes: No Symptoms, No Eye Pain, No Eye Redness Ears, Nose, & Throat: No Symptoms, No Throat Pain Respiratory: No Cough, No Dyspnea Cardiac: No Chest Pain, No Edema, No Syncope Abdominal/Gastrointestinal: No Abdominal Pain, No Nausea, No Vomiting, No Diarrhea Genitourinary Symptoms: No Dysuria, No Hematuria Musculoskeletal: No Back Pain, No Neck Pain Skin: Cellulitis, Skin Lesions, No Pruritis, No Rash Neurological: No Dizziness, No Focal Weakness, No Sensory Changes Psychological: No Symptoms Endocrine: No Symptoms Hematologic/Lymphatic: No Easy Bleeding, No Easy Bruising All Other Systems: Reviewed and Negative - Past Medical History Pertinent Past Medical History: Yes Neurological History: No Pertinent History ENT History: No Pertinent History Cardiac History: High Cholesterol Respiratory History: Asthma Endocrine Medical History: Diabetes Type I Musculoskeletal History: Arthritis, Fibromyalgia GI Medical History: Colitis, GERD, Gallbladder Disease History: No Pertinent History Psycho-Social History: Anxiety, Depression Female Reproductive Disorders: Abnormal Uterine Bleeding, Menstrual Problems Other Medical History: Celiac disease and unknown connective tissue disease. - Past Surgical History Past Surgical History: Yes Neuro Surgical History: No Pertinent History Cardiac: No Pertinent History Respiratory: No Pertinent History Gastrointestinal: Appendectomy, Cholecystectomy, Hernia Repair Musculoskeletal: No Pertinent History Female Surgical History: Section, Hysterectomy Other Surgical History: Cholecystectomy, appendectomy - Social History Smoking Status: Never smoker Exposure to second hand smoke: No Drug Use: none Patient Lives Alone: No - Nursing Vital Signs Nursing Vital Signs: Initial Vital Signs Temperature 98.2 F 12/10/18 16:53 Pulse Rate 93 H 12/10/18 16:53 Respiratory Rate 20 12/10/18 16:53 Blood Pressure 110/72 12/10/18 16:53 O2 Sat by Pulse Oximetry 98 12/10/18 16:53 Pain Scale Pain Intensity 7 - Physical Exam General Appearance: no apparent distress, alert Eye Exam: PERRL/EOMI, eyes nml inspection Ears, Nose, Throat Exam: normal ENT inspection, pharynx normal, moist mucous membranes Neck Exam: normal inspection, non-tender, supple, full range of motion Respiratory Exam: normal breath sounds, lungs clear, No respiratory distress Cardiovascular Exam: regular rate/rhythm, normal heart sounds, capillary refill <2 sec Gastrointestinal/Abdomen Exam: soft, mass, No tenderness Back Exam: normal inspection, normal range of motion, No CVA tenderness, No vertebral tenderness Extremity Exam: normal inspection, normal range of motion Neurologic Exam: alert, oriented x 3, cooperative, normal mood/affect, sensation nml, No motor deficits Skin Exam: normal color, warm, dry, other (2 separate papulopustular skin lesions on the left lower leg on the anterior component, one measuring 8 mm and the other measuring 6 mm in diameter; tonsils appear to have opened and drained with no further purulent drainage noted; left knee: Anterolateral component is a 2 cm area of mild induration and erythema that is tender to touch and slightly warm with no fluctuance or purulent nodule palpated; no pustules noted on this area; no signs of erythematous streaking) - Progress Progress Note: 12/10/18 17:10 ppatient that at this time there is a skin infection but no signs of abscess that needs draining. Patient is to do warm compresses 10-15 minutes daily 4 times a day with Bactrim twice daily as well as using Hibiclens scrub as directed per instructions. Patient's return immediately back return if any worse at any time. Patient is to follow-up with her physician in 3 days to check response to therapy. Counseled pt/family regarding: diagnosis, need for follow-up - Departure Departure Disposition: Home Clinical Impression: Cellulitis of left knee, Skin pustule Condition: Good Critical Care Time: No Referrals: MARTA CHUN NP [Primary Care Provider] - Follow Up with PCP/3 days Additional Instructions: Return immediately back to the Emergency Department if any worse at any time in regards to worsening swelling, worsening pain, worsening redness, red streaking or any fevers. Use the skin wash as directed. Do warm compressions for 10-15 minutes four times daily to affected areas until follow-up with your physician. Prescriptions: Chlorhexidine Gluconate [HIBICLENS 4% Scrub] 1 ml TOP DAILY #1 bottle Etodolac 400 mg [Lodine 400 mg] 400 mg PO BID PRN PRN #20 tablet PRN Reason: Pain Smz/Tmp Ds Tablet [Bactrim Ds Tablet] 1 tab PO Q12H #20 tablet
== END 2018-12-10 17:20 | disposition home or self-care (01) ==
LOC: ED 16:46
DX: L03.116 Cellulitis of left lower limb (principal); L08.9 Local infection of the skin and subcutaneous tissue, unspecified; E10.9 Type 1 diabetes mellitus without complications; Z79.899 Other long term (current) drug therapy; Z79.4 Long term (current) use of insulin
CPT/HCPCS: 99283

== ENCOUNTER 2019-04-19 03:34 | Emergency (ER) | payer BC ==
[2019-04-19] MEDS ORDERED: Zofran 4 MG/2 ML VIAL IV ONE (03:51)
[2019-04-19] MEDS ORDERED: D50W 50 ml Abboject IV ONE ×2 (03:53→04:05)
[2019-04-19] MEDS ORDERED: DEXTROSE 10% 250 ML 250 ML IV SCH (04:00)
[2019-04-19] MEDS ORDERED: Zofran 4 MG/2 ML VIAL ONE (04:04)
[2019-04-19] MEDS ORDERED: DEXTROSE 10% 250 ML 250 ML IV ONE (04:05)
[2019-04-19 04:06] LABS: VBG BASE EXCESS 2.2 (-2.0-2.0); VBG CARBOXYHEMOGLOBIN 1.7 % T HGB (0.0-6.9); VBG HCO3- 28.3 meq/L (22-28); VBG HEMOGLOBIN 14.1; VBG O2 SATURATION 72.5 (95-100); VBG POTASSIUM 3.1 (3.5-5.1); VBG pH 7.37 (7.32-7.42)
[2019-04-19] MEDS ORDERED: Pepcid 20 MG VIAL IV ONE ×2 (04:06→04:14)
--- NOTE | 2019-04-19 04:09 | ERPHSYRPT ---
- History of Present Illness Time Seen by Provider: 04/19/19 03:55 Historian: patient Exam Limitations: no limitations Patient Subjective Stated Complaint: pt states she began vomiting around 0300 and states blood sugar was 35 at home. states she is not able to keep anything down to raise her blood sugar. Triage Nursing Assessment: pt alert and oriented, answers questions approp. pt ambualtory with steady gait noted. respirations nonlabored with lungs cta. skin pale and warm. bowel sounds present x4. abd soft,pt reports tenderness to epigastric area. Physician History: Patient began having nausea and found that her blood sugar is low prior to coming into the emergency department. Patient has not tried anything to increase her blood sugar as she is on an insulin pump. Patient had a sick contact with similar symptoms over the weekend. Timing/Duration: today, hour(s) (0.5), sudden Activities at Onset: none Quality: aching Abdominal Pain Onset Location: epigastric Pain Radiation: no radiation Severity of Pain-Max: mild Severity of Pain-Current: mild Modifying Factors: Worsens With: eating, vomiting Associated Symptoms: nausea, vomiting, No back, No chest pain, No diaphoresis, No diarrhea, No fever/chills, No fatigue, No headache, No heartburn, No loss of appetite, No neck pain, No rash, No shortness of breath, No syncope, No weakness Previous symptoms: same symptoms as today, no recent treatment Allergies/Adverse Reactions: metoclopramide HCl [From Reglan] Allergy (Mild, Verified 12/10/18 17:03) "CREEPY CRAWLYS" erythromycin base [Erythromycin Base] Adverse Reaction (Mild, Verified 12/10/18 17:03) Vomiting hydromorphone HCl [From Dilaudid] Adverse Reaction (Mild, Verified 12/10/18 17: 03) Vomiting Home Medications: Buspirone HCl [Buspar] 10 mg PO HS 01/25/14 [History] Duloxetine HCl [Cymbalta] 120 mg PO HS 01/25/14 [History] Insulin Glargine [Lantus Insulin] 48 unit SQ HS 01/25/14 [History] Insulin Lispro [Humalog] 12 unit SQ AC 01/25/14 [History] Lovastatin 40 mg PO HS 01/25/14 [History] Tizanidine HCl 4 mg [Zanaflex 4 MG] 6 mg PO HS 01/25/14 [History] Baclofen 10 mg [Lioresal 10 mg] 10 mg PO TID 01/02/15 [History] Fenofibrate 145 mg PO DAILY 01/02/15 [History] Fluticasone/Salmeterol [Advair 100-50 Diskus] 1 puff IH BID 05/26/15 [History] Hydrocodone Bit/Acetaminophen [Hydrocodon-Acetaminoph 7.5-325] 1 tab PO BID [History] Carbidopa/Levodopa [Sinemet 25-100 mg Tablet] 1 each PO DAILY 12/29/17 [History] Topiramate 25 mg [Topamax 25 MG] 50 mg PO HS 12/29/17 [History] Hx Tetanus, Diphtheria Vaccination/Date Given: Yes Hx Influenza Vaccination/Date Given: Yes Hx Pneumococcal Vaccination/Date Given: No Immunizations Up to Date: Yes - Review of Systems Constitutional: No Fever, No Chills Eyes: No Discharge Ears, Nose, & Throat: No Nose Congestion, No Nose Discharge, No Mouth Pain, No Mouth Swelling, No Throat Pain, No Painful Swallowing Respiratory: No Cough, No Dyspnea Cardiac: No Chest Pain, No Edema, No Syncope Abdominal/Gastrointestinal: Abdominal Pain, Nausea, Vomiting, No Diarrhea, No Hematemesis, No Hematochezia, No Melena Genitourinary Symptoms: No Dysuria, No Hematuria, No Flank Pain Musculoskeletal: No Back Pain, No Neck Pain, No Fall Skin: No Rash Neurological: No Dizziness, No Focal Weakness, No Headache, No Parasthesia, No Seizure, No Sensory Changes, No Tremors Psychological: No Symptoms, No Anxiety Endocrine: No Symptoms Hematologic/Lymphatic: No Easy Bleeding, No Easy Bruising All Other Systems: Reviewed and Negative - Past Medical History Pertinent Past Medical History: Yes Neurological History: No Pertinent History ENT History: No Pertinent History Cardiac History: High Cholesterol Respiratory History: Asthma Endocrine Medical History: Diabetes Type I Musculoskeletal History: Arthritis, Fibromyalgia GI Medical History: Colitis, GERD, Gallbladder Disease History: No Pertinent History Psycho-Social History: Anxiety, Depression Female Reproductive Disorders: Abnormal Uterine Bleeding, Menstrual Problems Other Medical History: Celiac disease and unknown connective tissue disease. - Past Surgical History Past Surgical History: Yes Neuro Surgical History: No Pertinent History Cardiac: No Pertinent History Respiratory: No Pertinent History Gastrointestinal: Appendectomy, Cholecystectomy, Hernia Repair Musculoskeletal: No Pertinent History Female Surgical History: Section, Hysterectomy Other Surgical History: Cholecystectomy, appendectomy - Social History Smoking Status: Never smoker Exposure to second hand smoke: No Drug Use: none Patient Lives Alone: No - Female History Hx Last Menstrual Period: hyster Hx Now: No - Nursing Vital Signs Nursing Vital Signs: Initial Vital Signs Temperature 97.6 F 04/19/19 03:42 Pulse Rate 90 04/19/19 03:42 Respiratory Rate 18 04/19/19 03:42 Blood Pressure 106/70 04/19/19 03:42 O2 Sat by Pulse Oximetry 96 04/19/19 03:42 Pain Scale Pain Intensity 7 - Physical Exam General Appearance: no apparent distress, alert Eye Exam: PERRL/EOMI, eyes nml inspection Ears, Nose, Throat Exam: normal ENT inspection, TMs normal, pharynx normal, moist mucous membranes Neck Exam: normal inspection, non-tender, supple, full range of motion, No meningismus, No Brudzinski, No Kernig's, No lymphadenopathy Respiratory Exam: normal breath sounds, lungs clear, airway intact, No respiratory distress, No diminished breath sounds, No accessory muscle use, No crackles/rales, No rhonchi, No wheezing, No stridor Cardiovascular Exam: regular rate/rhythm, normal heart sounds, normal peripheral pulses, capillary refill <2 sec Gastrointestinal/Abdomen Exam: soft, normal bowel sounds, No tenderness, No distention, No mass, No guarding, No rebound Back Exam: normal inspection, normal range of motion, No CVA tenderness, No vertebral tenderness Extremity Exam: normal inspection, normal range of motion, pelvis stable Neurologic Exam: alert, oriented x 3, cooperative, apartment coordinator II-XII nml as tested, normal mood/affect, sensation nml, No motor deficits Skin Exam: normal color, warm, dry, No rash, No petechiae, No jaundice, No cyanosis SpO2 Interpretation: normal SpO2: 96 O2 Delivery: Room Air - Course Nursing assessment & vital signs reviewed: Yes EKG Interpreted by Me: RATE (77), Sinus Rhythm, NORMAL AXIS, NORMAL INTERVALS, NORMAL QRS, NORMAL ST-T, Other (no appreciable change in comparison to EKG from 01/25/2014) - Radiology Exams Chest X-ray Interpretation: Interpreted by me, Reviewed by me, No Pneumonia, No Pneumothorax, Nml Heart Size, No Infiltrates, Nml Mediastinum Ordered Tests: Active Orders 24 hr Category Date Time Status EKG-ER Only STAT Care 04/19/19 03:51 Active IV Insertion STAT Care 04/19/19 03:51 Active CHEST 1 VIEW (PORTABLE) Stat Exams 04/19/19 03:52 Taken AMYLASE Stat Lab 04/19/19 04:00 Completed BLOOD CULTURE Stat Lab 04/19/19 04:15 Received CBC W DIFF Stat Lab 04/19/19 04:00 Completed CMP Stat Lab 04/19/19 04:00 Completed CULTURE,URINE Stat Lab 04/19/19 03:42 Received ETHYL ALCOHOL Routine Lab 04/19/19 04:00 Completed HCG,QUALITATIVE URINE Stat Lab 04/19/19 03:42 Completed LIPASE Stat Lab 04/19/19 04:00 Completed Lactic Acid Stat Lab 04/19/19 04:00 Completed NT PRO BNP Routine Lab 04/19/19 04:00 Completed PROTIME WITH INR Stat Lab 04/19/19 04:00 Completed TROPONIN Q3H Lab 04/19/19 04:00 Completed TROPONIN Q3H Lab 04/19/19 07:00 Ordered TROPONIN Q3H Lab 04/19/19 10:00 Ordered TROPONIN Q3H Lab 04/19/19 13:00 Ordered TROPONIN Q3H Lab 04/19/19 16:00 Ordered UA W/RFX UR CULTURE Stat Lab 04/19/19 03:42 Completed Urine Triage Profile Stat Lab 04/19/19 03:42 Completed VENOUS BLOOD GAS Stat Lab 04/19/19 04:00 Completed Medication Summary Generic Name Dose Route Start Last Admin Trade Name Freq PRN Reason Stop Dose Admin Dextrose 250 mls @ 250 mls/hr 04/19/19 04:00 04/19/19 04:07 Dextrose 10% 250 Ml IV 05/19/19 03:59 250 mls/hr .Q1H MARNIE Administration Discontinued Medications Generic Name Dose Route Start Last Admin Trade Name Freq PRN Reason Stop Dose Admin Dextrose 25 ml 04/19/19 03:53 04/19/19 04:07 D50w 50 Ml Abboject IV 04/19/19 03:54 25 ml STAT ONE Administration Dextrose Confirm 04/19/19 04:05 D50w 50 Ml Abboject Administered 04/19/19 04:06 Dose 50 ml IV .STK-MED ONE Famotidine 20 mg 04/19/19 04:06 04/19/19 04:16 Pepcid 20 Mg Vial IV 04/19/19 04:07 20 mg STAT ONE Administration Famotidine Confirm 04/19/19 04:14 Pepcid 20 Mg Vial Administered 04/19/19 04:15 Dose 20 mg IV .STK-MED ONE Ondansetron HCl 4 mg 04/19/19 03:51 04/19/19 04:08 Zofran 4 Mg/2 Ml Vial IV 04/19/19 03:52 4 mg STAT ONE Administration Ondansetron HCl Confirm 04/19/19 04:04 Zofran 4 Mg/2 Ml Vial Administered 04/19/19 04:05 Dose 4 mg .ROUTE .STK-MED ONE Potassium Chloride 40 meq 04/19/19 04:32 04/19/19 05:58 Klor Con 10 Meq PO 04/19/19 04:33 40 meq STAT ONE Administration Potassium Chloride Confirm 04/19/19 05:57 Klor Con 10 Meq Administered 04/19/19 05:58 Dose 40 meq PO .STK-MED ONE Lab/Rad Data: Laboratory Result Diagrams 04/19/19 04:00 04/19/19 04:00 Laboratory Results 04/19/19 04/19/19 04/19/19 Range/Units 04:00 04:00 04:00 WBC (4.0-10.5) K/mm3 RBC (4.1-5.4) M/mm3 Hgb (12.0-16.0) gm/dl Hct (35-47) % MCV (78-100) fl MCH (26-32) pg MCHC (32-36) g/dl RDW (11.5-14.0) % Plt Count (150-450) K/mm3 MPV (7.5-11.0) fl Gran % (36.0-66.0) % Eos # (Auto) (0-0.5) Absolute Lymphs (auto) (1.0-4.6) Absolute Monos (auto) (0.0-1.3) Lymphocytes % (24.0-44.0) % Monocytes % (0.0-12.0) % Eosinophils % (0.00-5.0) % Basophils % (0.0-0.4) % Absolute Granulocytes (1.4-6.9) Basophils # (0-0.4) PT 11.9 (9.95-12.35) SECONDS INR 1.05 (0.8-3.0) pO2/FiO2 Ratio 21.0 % VBG pH 7.37 (7.32-7.42) VBG pCO2 at Pat Temp 49 (42-55) mm/Hg VBG pO2 at Pat Temp 41 H (25-40) mm/Hg VBG HCO3 28.3 H (22-28) meq/L VBG O2 Sat (Pete) 72.5 L (95-100) VBG Base Excess 2.2 H (-2.0-2.0) VBG Hemoglobin 14.1 VBG Carboxyhemoglobin 1.7 (0.0-6.9) % T HGB POC Potassium 3.1 L (3.5-5.1) Sodium (137-145) mmol/L Potassium (3.5-5.1) mmol/L Chloride (98-107) mmol/L Carbon Dioxide (22-30) mmol/L Anion Gap (5-15) MEQ/L BUN (7-17) mg/dL Creatinine (0.52-1.04) mg/dL Estimated GFR ML/MIN Glucose (74-106) mg/dL Lactic Acid (0.4-2.0) Calcium (8.4-10.2) mg/dL Total Bilirubin (0.2-1.3) mg/dL AST (14-36) U/L ALT (0-35) U/L Alkaline Phosphatase (38-126) U/L Troponin I < 0.012 (0.000-0.034) ng/mL NT-Pro-B Natriuret Pep 47.2 (0-450) pg/mL Serum Total Protein (6.3-8.2) g/dL Albumin (3.5-5.0) g/dL Amylase (30-110) U/L Lipase (23-300) U/L Urine Color (YELLOW) Urine Appearance (CLEAR) Urine pH (5-6) Ur Specific [place] (1.005-1.025) Urine Protein (Negative) Urine Ketones (NEGATIVE) Urine Blood (0-5) Nura/ul Urine Nitrite (NEGATIVE) Urine Bilirubin (NEGATIVE) Urine Urobilinogen (0-1) mg/dL Ur Leukocyte Esterase (NEGATIVE) Urine WBC (Auto) (0-5) /HPF Urine RBC (Auto) (0-2) /HPF U Epithel Cells (Auto) (FEW) /HPF Urine Bacteria (Auto) (NEGATIVE) /HPF Urine Mucus (Auto) (NEGATIVE) /HPF Urine Culture Reflexed (NO) Urine Glucose (NEGATIVE) mg/dL Urine HCG, Qual (Negative) Urine Opiates Level (NEGATIVE) Ur Methadone (NEGATIVE) Urine Barbiturates (NEGATIVE) Ur Phencyclidine (PCP) (NEGATIVE) Urine Amphetamine (NEGATIVE) U Benzodiazepine Level (NEGATIVE) Urine Cocaine (NEGATIVE) Urine Marijuana (THC) (NEGATIVE) Ethyl Alcohol < 10 (0-10) mg/dL 04/19/19 04/19/19 04/19/19 Range/Units 04:00 04:00 04:00 WBC 12.9 H (4.0-10.5) K/mm3 RBC 4.57 (4.1-5.4) M/mm3 Hgb 13.7 (12.0-16.0) gm/dl Hct 40.9 (35-47) % MCV 89.5 (78-100) fl MCH 30.0 (26-32) pg MCHC 33.5 (32-36) g/dl RDW 13.8 (11.5-14.0) % Plt Count 311 (150-450) K/mm3 MPV 10.4 (7.5-11.0) fl Gran % 84.3 H (36.0-66.0) % Eos # (Auto) 0.16 (0-0.5) Absolute Lymphs (auto) 1.36 (1.0-4.6) Absolute Monos (auto) 0.47 (0.0-1.3) Lymphocytes % 10.6 L (24.0-44.0) % Monocytes % 3.7 (0.0-12.0) % Eosinophils % 1.2 (0.00-5.0) % Basophils % 0.2 (0.0-0.4) % Absolute Granulocytes 10.86 H (1.4-6.9) Basophils # 0.02 (0-0.4) PT (9.95-12.35) SECONDS INR (0.8-3.0) pO2/FiO2 Ratio % VBG pH (7.32-7.42) VBG pCO2 at Pat Temp (42-55) mm/Hg VBG pO2 at Pat Temp (25-40) mm/Hg VBG HCO3 (22-28) meq/L VBG O2 Sat (Pete) (95-100) VBG Base Excess (-2.0-2.0) VBG Hemoglobin VBG Carboxyhemoglobin (0.0-6.9) % T HGB POC Potassium (3.5-5.1) Sodium 144 (137-145) mmol/L Potassium 3.1 L (3.5-5.1) mmol/L Chloride 106 (98-107) mmol/L Carbon Dioxide 27 (22-30) mmol/L Anion Gap 13.0 (5-15) MEQ/L BUN 16 (7-17) mg/dL Creatinine 0.93 (0.52-1.04) mg/dL Estimated GFR > 60.0 ML/MIN Glucose 35 L* (74-106) mg/dL Lactic Acid 1.3 (0.4-2.0) Calcium 9.5 (8.4-10.2) mg/dL Total Bilirubin 0.40 (0.2-1.3) mg/dL AST 30 (14-36) U/L ALT 18 (0-35) U/L Alkaline Phosphatase 60 (38-126) U/L Troponin I (0.000-0.034) ng/mL NT-Pro-B Natriuret Pep (0-450) pg/mL Serum Total Protein 7.5 (6.3-8.2) g/dL Albumin 4.3 (3.5-5.0) g/dL Amylase 70 (30-110) U/L Lipase 115 (23-300) U/L Urine Color (YELLOW) Urine Appearance (CLEAR) Urine pH (5-6) Ur Specific [place] (1.005-1.025) Urine Protein (Negative) Urine Ketones (NEGATIVE) Urine Blood (0-5) Nura/ul Urine Nitrite (NEGATIVE) Urine Bilirubin (NEGATIVE) Urine Urobilinogen (0-1) mg/dL Ur Leukocyte Esterase (NEGATIVE) Urine WBC (Auto) (0-5) /HPF Urine RBC (Auto) (0-2) /HPF U Epithel Cells (Auto) (FEW) /HPF Urine Bacteria (Auto) (NEGATIVE) /HPF Urine Mucus (Auto) (NEGATIVE) /HPF Urine Culture Reflexed (NO) Urine Glucose (NEGATIVE) mg/dL Urine HCG, Qual (Negative) Urine Opiates Level (NEGATIVE) Ur Methadone (NEGATIVE) Urine Barbiturates (NEGATIVE) Ur Phencyclidine (PCP) (NEGATIVE) Urine Amphetamine (NEGATIVE) U Benzodiazepine Level (NEGATIVE) Urine Cocaine (NEGATIVE) Urine Marijuana (THC) (NEGATIVE) Ethyl Alcohol (0-10) mg/dL 04/19/19 04/19/19 04/19/19 Range/Units 03:42 03:42 03:42 WBC (4.0-10.5) K/mm3 RBC (4.1-5.4) M/mm3 Hgb (12.0-16.0) gm/dl Hct (35-47) % MCV (78-100) fl MCH (26-32) pg MCHC (32-36) g/dl RDW (11.5-14.0) % Plt Count (150-450) K/mm3 MPV (7.5-11.0) fl Gran % (36.0-66.0) % Eos # (Auto) (0-0.5) Absolute Lymphs (auto) (1.0-4.6) Absolute Monos (auto) (0.0-1.3) Lymphocytes % (24.0-44.0) % Monocytes % (0.0-12.0) % Eosinophils % (0.00-5.0) % Basophils % (0.0-0.4) % Absolute Granulocytes (1.4-6.9) Basophils # (0-0.4) PT (9.95-12.35) SECONDS INR (0.8-3.0) pO2/FiO2 Ratio % VBG pH (7.32-7.42) VBG pCO2 at Pat Temp (42-55) mm/Hg VBG pO2 at Pat Temp (25-40) mm/Hg VBG HCO3 (22-28) meq/L VBG O2 Sat (Pete) (95-100) VBG Base Excess (-2.0-2.0) VBG Hemoglobin VBG Carboxyhemoglobin (0.0-6.9) % T HGB POC Potassium (3.5-5.1) Sodium (137-145) mmol/L Potassium (3.5-5.1) mmol/L Chloride (98-107) mmol/L Carbon Dioxide (22-30) mmol/L Anion Gap (5-15) MEQ/L BUN (7-17) mg/dL Creatinine (0.52-1.04) mg/dL Estimated GFR ML/MIN Glucose (74-106) mg/dL Lactic Acid (0.4-2.0) Calcium (8.4-10.2) mg/dL Total Bilirubin (0.2-1.3) mg/dL AST (14-36) U/L ALT (0-35) U/L Alkaline Phosphatase (38-126) U/L Troponin I (0.000-0.034) ng/mL NT-Pro-B Natriuret Pep (0-450) pg/mL Serum Total Protein (6.3-8.2) g/dL Albumin (3.5-5.0) g/dL Amylase (30-110) U/L Lipase (23-300) U/L Urine Color YELLOW (YELLOW) Urine Appearance SLIGHTLY CLOUDY (CLEAR) Urine pH 6.0 (5-6) Ur Specific [place] 1.009 (1.005-1.025) Urine Protein NEGATIVE (Negative) Urine Ketones NEGATIVE (NEGATIVE) Urine Blood NEGATIVE (0-5) Nura/ul Urine Nitrite NEGATIVE (NEGATIVE) Urine Bilirubin NEGATIVE (NEGATIVE) Urine Urobilinogen NEGATIVE (0-1) mg/dL Ur Leukocyte Esterase NEGATIVE (NEGATIVE) Urine WBC (Auto) 11-15 (0-5) /HPF Urine RBC (Auto) 0-2 (0-2) /HPF U Epithel Cells (Auto) MODERATE (FEW) /HPF Urine Bacteria (Auto) MANY (NEGATIVE) /HPF Urine Mucus (Auto) SLIGHT (NEGATIVE) /HPF Urine Culture Reflexed YES (NO) Urine Glucose NEGATIVE (NEGATIVE) mg/dL Urine HCG, Qual NEGATIVE (Negative) Urine Opiates Level POSITIVE (NEGATIVE) Ur Methadone NEGATIVE (NEGATIVE) Urine Barbiturates NEGATIVE (NEGATIVE) Ur Phencyclidine (PCP) NEGATIVE (NEGATIVE) Urine Amphetamine NEGATIVE (NEGATIVE) U Benzodiazepine Level NEGATIVE (NEGATIVE) Urine Cocaine NEGATIVE (NEGATIVE) Urine Marijuana (THC) NEGATIVE (NEGATIVE) Ethyl Alcohol (0-10) mg/dL - Progress Progress: improved Progress Note: 04/19/19 06:01 Patient is feeling well and wants to drink something. FBS is 138. 04/19/19 06:52 patient is doing well, hemodynamically in good condition, with no obvious secondary causes such as renal failure, hepatic failure, cardiac failure, acute coronary syndrome, infectious etiology leading to her hypoglycemia that would require patient to be admitted to the hospital at this time. 04/19/19 06:59 FBS is 157 Counseled pt/family regarding: lab results, diagnosis, need for follow-up, rad results - Departure Departure Disposition: Home Clinical Impression: IDDM (insulin dependent diabetes mellitus), Hypoglycemia due to insulin, Nausea and vomiting in adult Condition: Good Critical Care Time: Yes Critical Care Time(excluding separately billable procedures): Critical 30-74 mins Referrals: MARTA CHUN, AKBAR [Primary Care Provider] - 04/19/19 Instructions: Nausea -- Adult, Vomiting -- Adult, Low Blood Sugar, Adult (DC) Additional Instructions: Discharge/Care Plan JUAN CARLOS ISAACS was seen on 04/19/19 in the Emergency Room. The patient was counseled regarding Diagnosis,Lab results, Imaging studies, need for follow up and when to return to the Emergency Room. Return if any dizziness, vomiting, poor intake of food and beverage, new fever, new cough, new chest pain, new shortness of breath or any other concerning signs or symptoms not present at today's emergency department visit for immediate evaluation in the emergency department. Prescriptions given: Zofran, Dextrose Gel Discharge Note I have spoken with the patient and family. I have explained the patient's condition, diagnosis and treatment plan based on the information available to me at this time. I have answered the patient's and family's questions and addressed any concerns. The patient and family have as good understanding of the patient's diagnosis, condition and treatment plan as can be expected at this point. The vital signs have been stable. The patient's condition is stable and appropriate for discharge from the emergency department. The patient will pursue further outpatient evaluation with the primary care physician or other designated or consulting physician as outlined in the discharge instructions. The patient and family are agreeable to this plan of care and follow-up instructions have been explained in detail. The patient and family have received these instruction. The patient and family are aware that any significant change in condition or worsening of symptoms should prompt an immediate return to this or the closest emergency department or call 911.
[2019-04-19 04:25] LABS: Absolute Neutrophil Ct (ANC) 10.86 (1.4-6.9); BASOPHIL % 0.2 % (0.0-0.4); Basophil (Absolute #) 0.02 (0-0.4); Eosinophil % 1.2 % (0.00-5.0); Eosinophil (Absolute #) 0.16 (0-0.5); Hematocrit 40.9 % (35-47); Hemoglobin 13.7 gm/dl (12.0-16.0); Lymphocyte (Absolute #) 1.36 (1.0-4.6); Lymphocytes % 10.6 % (24.0-44.0); Mean Cell Volume 89.5 fl (78-100); Mean Corpuscular Hgb Concent. 33.5 g/dl (32-36); Mean Platelet Volume 10.4 fl (7.5-11.0); Monocyte (Absolute #) 0.47 (0.0-1.3); Monocytes % 3.7 % (0.0-12.0); Neutrophil % 84.3 % (36.0-66.0); Platelet Count 311 K/mm3 (150-450); Red Blood Count 4.57 M/mm3 (4.1-5.4); Red Cell Distribution Width 13.8 % (11.5-14.0); White Blood Count 12.9 K/mm3 (4.0-10.5)
[2019-04-19] MEDS ORDERED: Klor Con 10 MEQ PO ONE ×2 (04:32→05:57)
[2019-04-19 04:34] LABS: INR 1.05 (0.8-3.0); PROTIME 11.9 SECONDS (9.95-12.35)
[2019-04-19 04:38] LABS: ALBUMIN 4.3 g/dL (3.5-5.0); ALKALINE PHOSPHATASE 60 U/L (38-126); AMYLASE 70 U/L (30-110); BLOOD UREA NITROGEN 16 mg/dL (7-17); CHLORIDE 106 mmol/L (98-107); Calcium 9.5 mg/dL (8.4-10.2); Carbon Dioxide 27 mmol/L (22-30); Creatinine 1 0.93 mg/dL (0.52-1.04); LIPASE 115 U/L (23-300); Potassium 3.1 mmol/L (3.5-5.1); SGOT/AST 30 U/L (14-36); SGPT/ALT 18 U/L (0-35); SODIUM 144 mmol/L (137-145); Total Protein 7.5 g/dL (6.3-8.2)
[2019-04-19 04:40] LABS: Appearance SLIGHTLY CLOUDY (CLEAR); Bacteria MANY /HPF (NEGATIVE); Bilirubin NEGATIVE (NEGATIVE); Blood NEGATIVE Ery/ul (0-5); Epithelial Cells MODERATE /HPF (FEW); Glucose NEGATIVE (NEGATIVE); Ketones NEGATIVE (NEGATIVE); Leukocyte Esterase NEGATIVE (NEGATIVE); Mucus SLIGHT /HPF (NEGATIVE); Nitrite NEGATIVE (NEGATIVE); Protein,Urine Dip NEGATIVE (Negative); RBC 0-2 /HPF (0-2); Specific Gravity 1.009 (1.005-1.025); Urobilinogen NEGATIVE mg/dL (0-1)
[2019-04-19 04:45] LABS: Glucose 35 mg/dL (74-106)
[2019-04-19 04:47] LABS: Amphetamine,Urine NEGATIVE (NEGATIVE); Barbiturate,Urine NEGATIVE (NEGATIVE); Benzodiazepine,Urine NEGATIVE (NEGATIVE); Cocaine,Urine NEGATIVE (NEGATIVE); Methadone,Urine NEGATIVE (NEGATIVE); Opiate,Urine POSITIVE (NEGATIVE); PCP,Urine NEGATIVE (NEGATIVE); THC,Urine NEGATIVE (NEGATIVE)
[2019-04-19 04:50] LABS: NT PRO BNP 47.2 pg/mL (0-450)
[2019-04-19 04:53] LABS: ETHYL ALCOHOL < 10 mg/dL (0-10); TROPONIN < 0.012 ng/mL (0.000-0.034)
[2019-04-19 06:53] VITALS: O2SAT 96
[2019-04-19 07:05] VITALS: BP 105/69; PULSE 86
--- NOTE | 2019-04-19 09:20 | XRAY ---
Indication: Hypoglycemia. Comparison: January 25, 2014. Portable chest again demonstrates normal heart and lungs. Bony thorax intact with minimal degenerative changes. No new/acute findings.
== END 2019-04-19 08:28 | disposition home or self-care (01) ==
LOC: ED 03:34
DX: E10.649 Type 1 diabetes mellitus with hypoglycemia without coma (principal); E78.00 Pure hypercholesterolemia, unspecified; M79.7 Fibromyalgia; F41.9 Anxiety disorder, unspecified; F32.9 Major depressive disorder, single episode, unspecified
CPT/HCPCS: 36000; 36415; 71045; 80053; 80307; 81001; 82150; 82805; 82962; 83605; 83690; 83880; 84484; 84703; 85025; 85610; 87040; 87086; 93005; 96365; 96374; 96375; 99284; 99291; J2405; A9270-GY; G0480

== ENCOUNTER 2021-10-22 23:31 | Emergency (ER) | payer BC ==
--- NOTE | 2021-10-22 23:49 | ERPHSYRPT ---
- History of Present Illness Time Seen by Provider: 10/22/21 23:44 Source: patient, family Exam Limitations: no limitations Physician History: This is a 51-year-old white female who accidentally took clonidine 0.2 mg of her sons at approximate 830 to 9:00 PM. Radha, from [facility], called the emergency department here and stated the patient should be observed 1 to 3 hours from the time of ingestion. The patient did not take a toxic dose but her initial systolic blood pressure was 120. Radha called the patient back in approximately 1 hour and the patient's blood pressure systolically, dropped to 87 and she was feeling short of breath and having some chest pain. Therefore, the patient was instructed to come the emergency department for evaluation and management. The management will include IV placement, 1 L of IV fluids, EKG, CBC, CMP and troponin level. Patient arrives to the emergency department with a normal heart rate and rhythm on the monitor and a systolic blood pressure of 99. Patient does have elevated cholesterol, diabetes and anxiety issues. Timing/Duration: today Modifying Factors: Improves With: nothing Associated Symptoms: shortness of breath, chest pain Allergies/Adverse Reactions: metoclopramide HCl [From Reglan] Allergy (Mild, Verified 10/22/21 23:48) "CREEPY CRAWLYS" erythromycin base [Erythromycin Base] Adverse Reaction (Mild, Verified 10/22/21 23:48) Vomiting hydromorphone HCl [From Dilaudid] Adverse Reaction (Mild, Verified 10/22/21 23:48) Vomiting Home Medications: Buspirone HCl [Buspar] 10 mg PO HS 01/25/14 [History] Duloxetine HCl [Cymbalta] 120 mg PO HS 01/25/14 [History] Insulin Glargine [Lantus Insulin] 48 unit SQ HS 01/25/14 [History] Insulin Lispro [Humalog] 12 unit SQ AC 01/25/14 [History] Lovastatin 40 mg PO HS 01/25/14 [History] Tizanidine HCl 4 mg [Zanaflex 4 MG] 6 mg PO HS 01/25/14 [History] Baclofen 10 mg [Lioresal 10 mg] 10 mg PO TID 01/02/15 [History] Fenofibrate 145 mg PO DAILY 01/02/15 [History] Fluticasone/Salmeterol [Advair 100-50 Diskus] 1 puff IH BID 05/26/15 [History] Hydrocodone/Acetaminophen [Hydrocodon-Acetaminoph 7.5-325] 1 tab PO BID 05/26/15 [History] Carbidopa/Levodopa [Sinemet 25-100 mg Tablet] 1 each PO DAILY 12/29/17 [History] Topiramate 25 mg [Topamax 25 MG] 50 mg PO HS 12/29/17 [History] Hx Tetanus, Diphtheria Vaccination/Date Given: Yes Hx Influenza Vaccination/Date Given: Yes Hx Pneumococcal Vaccination/Date Given: No Travel Risk - International Travel Have you traveled outside of the country in past 3 weeks: No - Coronavirus Screening Are you exhibiting any of the following symptoms?: No Close contact with a COVID-19 positive Pt in past 14-21 Days: No - Review of Systems Constitutional: No Symptoms Eyes: No Symptoms Ears, Nose, & Throat: No Symptoms Respiratory: Dyspnea Cardiac: Chest Pain (Mild substernal central nonradiating) Abdominal/Gastrointestinal: No Symptoms Genitourinary Symptoms: No Symptoms Musculoskeletal: No Symptoms Skin: No Symptoms Neurological: No Symptoms Psychological: No Symptoms Endocrine: No Symptoms Hematologic/Lymphatic: No Symptoms Immunological/Allergic: No Symptoms All Other Systems: Reviewed and Negative - Past Medical History Pertinent Past Medical History: Yes Neurological History: No Pertinent History ENT History: No Pertinent History Cardiac History: High Cholesterol Respiratory History: Asthma Endocrine Medical History: Diabetes Type I Musculoskeletal History: Arthritis, Fibromyalgia GI Medical History: Colitis, GERD, Gallbladder Disease History: No Pertinent History Psycho-Social History: Anxiety, Depression Female Reproductive Disorders: Abnormal Uterine Bleeding, Menstrual Problems Other Medical History: Celiac disease and unknown connective tissue disease. - Past Surgical History Past Surgical History: Yes Neuro Surgical History: No Pertinent History Cardiac: No Pertinent History Respiratory: No Pertinent History Gastrointestinal: Appendectomy, Cholecystectomy, Hernia Repair Musculoskeletal: No Pertinent History Female Surgical History: Section, Hysterectomy Other Surgical History: Cholecystectomy, appendectomy - Social History Smoking Status: Never smoker Exposure to second hand smoke: No Drug Use: none Patient Lives Alone: No - Nursing Vital Signs Nursing Vital Signs: Initial Vital Signs Temperature 97.9 F 10/22/21 23:31 Pulse Rate 78 10/22/21 23:31 Respiratory Rate 14 10/22/21 23:31 Blood Pressure 99/66 10/22/21 23:31 O2 Sat by Pulse Oximetry 97 10/22/21 23:31 Pain Scale Pain Intensity 0 - Physical Exam General Appearance: no apparent distress, alert, anxiety Eye Exam: PERRL/EOMI, eyes nml inspection Ears, Nose, Throat Exam: normal ENT inspection, moist mucous membranes Neck Exam: normal inspection, non-tender, supple, full range of motion Respiratory Exam: normal breath sounds, chest tenderness (Mild substernal central nonradiating. 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 nml as tested, normal mood/affect, nml cerebellar function, nml station & gait, sensation nml Skin Exam: normal color, warm, dry Lymphatic Exam: No adenopathy SpO2 Interpretation: normal O2 Delivery: Room Air - Course Nursing assessment & vital signs reviewed: Yes EKG Interpreted by Me: RATE ([id number]), Sinus Rhythm, Left Bicknell Deviation, NORMAL INTERVALS, NORMAL QRS, Non-specific ST Changes, Other (No acute ischemic changes on today's EKG) Ordered Tests: Active Orders 24 hr Category Date Time Status 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 Wheel 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 STAT Care 10/22/21 23:50 Active EKG-ER Only STAT Care 10/22/21 23:50 Active IV Insertion STAT Care 10/22/21 23:50 Active Pulse Oximetry (ED) STAT Care 10/22/21 23:50 Active CBC W DIFF Stat Lab 10/22/21 23:45 Completed CMP Stat Lab 10/22/21 23:45 Completed TROPONIN Q3H Lab 10/22/21 23:45 Completed TROPONIN Q3H Lab 10/23/21 02:50 Ordered TROPONIN Q3H Lab 10/23/21 05:50 Ordered TROPONIN Q3H Lab 10/23/21 08:50 Ordered TROPONIN Q3H Lab 10/23/21 11:50 Ordered Medication Summary Generic Name Dose Route Start Last Admin Trade Name Freq PRN Reason Stop Dose Admin Sodium Chloride 1,000 mls @ 999 mls/hr 10/22/21 23:50 10/22/21 23:59 Sodium Chloride 0.9% 1000 Ml IV 10/23/21 00:50 999 mls/hr .Q1H1M STA Administration Discontinued Medications Generic Name Dose Route Start Last Admin Trade Name Joselito PRN Reason Stop Dose Admin Sodium Chloride Confirm 10/22/21 23:54 Sodium Chloride 0.9% 1000 Ml Administered 10/22/21 23:55 Dose 1,000 mls @ ud .ROUTE .STK-MED ONE Lab/Rad Data: Laboratory Result Diagrams 10/22/21 23:45 10/22/21 23:45 Laboratory Results 10/22/21 10/22/21 10/22/21 Range/Units 23:45 23:45 23:45 WBC 6.4 (4.0-10.5) x10^3/uL RBC 4.33 (4.1-5.4) x10^6/uL Hgb 12.6 (12.0-16.0) g/dL Hct 38.6 (35-47) % MCV 89.1 (78-100) fL MCH 29.1 (26-32) pg MCHC 32.6 (32-36) g/dL RDW 12.8 (11.5-14.0) % Plt Count 246 (150-450) x10^3/uL MPV 10.3 (7.5-11.0) fL Gran % 44.9 (36.0-66.0) % Immature Gran % (Auto) 0.5 H (0.00-0.4) % Nucleat RBC Rel Count 0.0 (0.00-0.1) % Eos # (Auto) 0.20 (0-0.5) x10^3/uL Immature Gran # (Auto) 0.03 (0.00-0.03) x10^3u/L Absolute Lymphs (auto) 2.75 (1.0-4.6) x10^3/uL Absolute Monos (auto) 0.50 (0.0-1.3) x10^3/uL Absolute Nucleated RBC 0.00 (0.00-0.01) x10^3u/L Lymphocytes % 42.9 (24.0-44.0) % Monocytes % 7.8 (0.0-12.0) % Eosinophils % 3.1 (0.00-5.0) % Basophils % 0.8 (0.0-0.4) % Absolute Granulocytes 2.88 (1.4-6.9) x10^3/uL Basophils # 0.05 (0-0.4) x10^3/uL Sodium 135 L (137-145) mmol/L Potassium 3.8 (3.5-5.1) mmol/L Chloride 104 (98-107) mmol/L Carbon Dioxide 25 (22-30) mmol/L Anion Gap 10.3 (5-15) MEQ/L BUN 13 (7-17) mg/dL Creatinine 0.80 (0.52-1.04) mg/dL Estimated GFR > 60.0 ML/MIN Glucose 125 H (74-106) mg/dL Calcium 9.1 (8.4-10.2) mg/dL Total Bilirubin 0.40 (0.2-1.3) mg/dL AST 26 (14-36) U/L ALT 20 (0-35) U/L Alkaline Phosphatase 72 (38-126) U/L Troponin I < 0.012 (0.000-0.034) ng/mL Serum Total Protein 6.7 (6.3-8.2) g/dL Albumin 3.7 (3.5-5.0) g/dL - Progress Progress: improved Progress Note: 10/23/21 00:44 Patient has no chest pain and is no longer short of breath. Counseled pt/family regarding: lab results, diagnosis, need for follow-up - Departure Departure Disposition: Home Clinical Impression: Ingestion, drug, inadvertent or accidental Condition: Stable Critical Care Time: No Referrals: MARTA CHUN NP [Primary Care Provider] - Follow up/PCP as directed Additional Instructions: Follow-up with your primary care provider for further evaluation and management. Drink plenty of fluids. Take your medication as prescribed.
[2021-10-22] MEDS ORDERED: Sodium Chloride 0.9% 1000 ML 1,000 ML ONE (23:54)
[2021-10-22] MEDS: Sodium Chloride 0.9% 1000 ML 1,000 ML IV STA (23:59)
[2021-10-23 00:02] LABS: Absolute Neutrophil Ct (ANC) 2.88 x10^3/uL (1.4-6.9); Basophil (Absolute #) 0.05 x10^3/uL (0-0.4); Eosinophil % 3.1 % (0.00-5.0); Hematocrit 38.6 % (35-47); Hemoglobin 12.6 g/dL (12.0-16.0); Lymphocyte (Absolute #) 2.75 x10^3/uL (1.0-4.6); Lymphocytes % 42.9 % (24.0-44.0); Mean Cell Volume 89.1 fL (78-100); Mean Corpuscular Hemoglobin 29.1 pg (26-32); Mean Corpuscular Hgb Concent. 32.6 g/dL (32-36); Mean Platelet Volume 10.3 fL (7.5-11.0); Monocytes % 7.8 % (0.0-12.0); Neutrophil % 44.9 % (36.0-66.0); Platelet Count 246 x10^3/uL (150-450); Red Blood Count 4.33 x10^6/uL (4.1-5.4); Red Cell Distribution Width 12.8 % (11.5-14.0); White Blood Count 6.4 x10^3/uL (4.0-10.5)
[2021-10-23 00:15] LABS: ALBUMIN 3.7 g/dL (3.5-5.0); ALKALINE PHOSPHATASE 72 U/L (38-126); ANION GAP 10.3 MEQ/L (5-15); BLOOD UREA NITROGEN 13 mg/dL (7-17); CHLORIDE 104 mmol/L (98-107); Calcium 9.1 mg/dL (8.4-10.2); Carbon Dioxide 25 mmol/L (22-30); EST GLOMERULAR FILTRATION RATE > 60.0 ML/MIN; Glucose 125 mg/dL (74-106); Potassium 3.8 mmol/L (3.5-5.1); SGOT/AST 26 U/L (14-36); SGPT/ALT 20 U/L (0-35); SODIUM 135 mmol/L (137-145); Total Protein 6.7 g/dL (6.3-8.2)
[2021-10-23] MEDS ORDERED: Sodium Chloride 0.9% 1000 ML 1,000 ML ONE (01:09)
[2021-10-23 01:13] VITALS: O2SAT 97
[2021-10-23] MEDS: Sodium Chloride 0.9% 1000 ML 1,000 ML IV STA (01:20)
[2021-10-23 02:29] VITALS: BP 100/63; PULSE 70
== END 2021-10-23 02:37 | disposition home or self-care (01) ==
LOC: ED 23:31
DX: T46.5X1A Poisoning by other antihypertensive drugs, accidental (unintentional), initial encounter (principal); I95.2 Hypotension due to drugs; R06.02 Shortness of breath; R07.9 Chest pain, unspecified; E78.5 Hyperlipidemia, unspecified; E10.9 Type 1 diabetes mellitus without complications; Z79.899 Other long term (current) drug therapy
CPT/HCPCS: 36000; 36415; 80053; 84484; 85025; 93005; 93041; 94760; 96360; 99284